=== PATIENT | female | born 1955 | race Caucasian/White ===

== ENCOUNTER 2016-06-25 06:17 | Inpatient (IN) | payer OTHER ==
[2016-06-25] MEDS ORDERED: ACETAMINOPHEN 650 MG SUPP.RECT RC ONE ×2 (06:26→11:03)
[2016-06-25] MEDS ORDERED: NORMAL SALINE 1,000 ML IV ONE ×2 (06:27→06:58)
[2016-06-25 06:46] LABS: Hematocrit 38.7 % (37.0-47.0); Hemoglobin 11.3 gm/dL (12.5-16.0); Mean Cell Volume 72.6 fl (78-100); Mean Corpuscular Hemoglobin 21.2 pg (27-31); Mean Corpuscular Hgb Conc 29.2 g/dl (32-36); Mean Platelet Volume 9.8 fl (6.0-9.5); Platelet Count 335 K/mm3 (150-450); Red Blood Count 5.33 M/mm3 (4.2-5.4); White Blood Count 18.4 K/mm3 (4.0-10.5)
[2016-06-25 06:47] LABS: Total Cells Counted 100
[2016-06-25 07:00] LABS: Albumin * 2.7 gm/dl (3.4-5.0); Anion Gap 24.4 mmol/L (6.8-13.8); BUN/Creatinine Ratio 10.2 (9.0-21.6); Ca. Corrected For Albumin 9.4 mg/dL (8.4-10.2); Calcium * 8.7 mg/dL (7.9-10.9); Carbon Dioxide 18.1 mmol/L (24-32.6); Total Protein 7.6 gm/dL (6.2-8.2)
[2016-06-25] MEDS ORDERED: ACETAMINOPHEN 650 MG SUPP.RECT ONE ×2 (07:00→11:02)
[2016-06-25 07:02] LABS: Band 23 % (0-2.0); Dohle Bodies 1+; Immature Granulocyte 9 (0-1); Lymphocyte 14 % (20-51); Macrocytosis 1+; Neutrophil 54 % (42-75); Neutrophil # 9.9 K/mm3 (1.3-6.0); Polychromasia Trace; Target Cells 1+; Toxic Granulation 2+
[2016-06-25 07:03] LABS: Platelet Estimate Increased (NORMAL)
[2016-06-25 07:08] LABS: Urine Bilirubin 6 mg/dl (NEGATIVE); Urine Blood 250 /ul (NEGATIVE); Urine Ketone Negative (NEGATIVE); Urine Nitrite Negative (NEGATIVE); Urine Protein >=300 mg/dL (NEGATIVE); Urine Urobilinogen Normal (NORMAL); Urine pH 6.5 pH (5.0-7.0)
[2016-06-25 07:09] LABS: Urine Appearance Turbid; Urine Bacteria 4+; Urine Color Dark Yellow; Urine Mucus Many - 3+
[2016-06-25 07:14] LABS: Potassium 2.5 mmol/L (3.4-4.6)
[2016-06-25] MEDS ORDERED: POTASSIUM CHLORIDE 40 MEQ in NORMAL SALINE 1,000 ML IV ONE (07:20)
[2016-06-25] MEDS ORDERED: SULFAMETHOXAZOLE/TRIMETHOPRIM 5 ML SYRINGE PO ONE (07:27)
[2016-06-25] MEDS ORDERED: LEVOFLOXACIN/D5W 500 MG/100 ML BAG IV SCH (07:30)
--- NOTE | 2016-06-25 07:33 | ERNOTE ---
Neuro HPI ER Record Time Seen by Provider: 06/25/16 06:24 Source: family, EMS Immunizations: IMMUNIZATION HX Immunizations Up to Date Yes Allergies/Adverse Reactions: Allergies Allergy/AdvReac Type Severity Reaction Status Date / Time cefixime [From Suprax] Allergy Unknown Verified 05/27/13 09:14 cefprozil [From Cefzil] Allergy Unknown Verified 05/27/13 09:14 cimetidine [From Tagamet] Allergy Unknown Verified 05/27/13 09:14 cimetidine HCl [From Tagamet] Allergy Unknown Verified 05/27/13 09:14 clarithromycin [From Biaxin] Allergy Unknown Verified 05/27/13 09:14 clindamycin HCl Allergy Unknown Verified 05/27/13 09:14 [From Cleocin] clindamycin palmitate HCl Allergy Unknown Verified 05/27/13 09:14 [From Cleocin] clindamycin phosphate Allergy Unknown Verified 05/27/13 09:14 [From Cleocin] dicyclomine HCl [From Bentyl] Allergy Unknown Verified 05/27/13 09:14 diphenhydramine HCl Allergy Unknown Verified 05/27/13 09:14 [From Benadryl] hydroxyzine HCl [From Atarax] Allergy Unknown Verified 05/27/13 09:14 ibuprofen [From Motrin] Allergy Unknown Verified 05/27/13 09:14 ketoconazole [From Nizoral] Allergy Unknown Verified 05/27/13 09:14 ketorolac tromethamine Allergy Unknown Verified 05/27/13 09:14 [From Toradol] loperamide HCl Allergy Unknown Verified 05/27/13 09:14 [From Imodium Advanced] metoclopramide HCl Allergy Unknown Verified 05/27/13 09:14 [From Reglan] nitrofurantoin Allergy Unknown Verified 05/27/13 09:14 [From Macrobid] nitrofurantoin Allergy Unknown Verified 05/27/13 09:14 macrocrystalline [From Macrobid] nortriptyline [Nortriptyline] Allergy Unknown Verified 05/27/13 09:14 prochlorperazine edisylate Allergy Unknown Verified 05/27/13 09:14 [From Compazine] prochlorperazine maleate Allergy Unknown Verified 05/27/13 09:14 [From Compazine] simethicone Allergy Unknown Verified 05/27/13 09:14 [From Imodium Advanced] atropine Allergy Verified 05/27/13 09:14 ciprofloxacin [From Cipro] Allergy Verified 05/27/13 09:14 ciprofloxacin HCl Allergy Verified 05/27/13 09:14 [From Cipro] clindamycin Allergy Verified 05/27/13 09:14 codeine [Codeine] Allergy Verified 05/27/13 09:14 ethambutol [Ethambutol] Allergy Verified 05/27/13 09:14 imipramine [Imipramine] Allergy Verified 05/27/13 09:14 isoniazid Allergy Verified 05/27/13 09:14 penicillin V [Penicillin V] Allergy Verified 05/27/13 09:14 pyrazinamide Allergy Verified 05/27/13 09:14 rifampin Allergy Verified 05/27/13 09:14 tetracycline [Tetracycline] Allergy Verified 05/27/13 09:14 Home Medications: HOME MEDICATIONS LORazepam [Ativan] 1 mg PO DAILY 06/25/16 [Last Taken Unknown] Lansoprazole [Prevacid] 30 mg PO DAILY 06/25/16 [Last Taken Unknown] Lorazepam 0.5 ml PO QID 06/25/16 [Last Taken Unknown] Meclizine HCl 25 mg PO BID PRN 06/25/16 [Last Taken Unknown] Morphine Sulfate [Morphine Sulfate Conc. Oral Solution] 0.05 ml PO Q4H 06/25/16 [Last Taken Unknown] Promethazine HCl [Phenergan] 1 - 2 ml IM Q6H 06/25/16 [Last Taken Unknown] Promethazine HCl [Phenergan] 25 mg PO QID PRN 06/25/16 [Last Taken Unknown] Propranolol HCl [Inderal] 10 mg PO QID 06/25/16 [Last Taken Unknown] - History of Present Illness Narrative: altered mental status and fever since two days ago but much worse today.Has not been eating or drinking. Review of Systems - Review of Systems Constitutional: Present: fever, chills, weakness, fatigue, malaise EYE: Present: no symptoms reported ENT: Present: no symptoms reported Respiratory: Present: no symptoms reported Cardiology: Present: no symptoms reported Gastrointestinal/Abdominal: Present: no symptoms reported Genitourinary: Present: no symptoms reported Skin: Present: no symptoms reported Neurological: Present: no symptoms reported - Patient's Past Medical History Patient History - Medical: Fibromyalgia, GERD Patient History - Cardiac/Respiratory: Arrhythmias Patient History - Cancer: Other Patient History - Surgical Procedures: Appendectomy, Colonoscopy, , Hysterectomy Patient History - Other: None - Family History Mother Family History - Medical: Family History - Cardiac/Respiratory: CHF, CVA/Stroke - Social History Living Situations: significant other Abuse History: No History of abuse Psych History: No pertinent hx Smoking Status: Never smoker Have you smoked in the past 12 months: No Alcohol Use: none Drug Use: none - Immunizations Immunizations Up to Date: Yes Physical Exam - Physical Exam General Appearance: Present: other - pt is tachypneic, febrile and altered. mouth is dry Eye Exam: Normal inspection: bilateral, PERRL: bilateral, EOMI: bilateral Ears, Nose, Throat: Present: normal ENT inspection, other - dry Neck: Present: normal inspection, nontender Respiratory: Present: lungs clear, other - pt is tachypneic Cardiovascular/Chest: Present: regular rate, rhythm, no murmur, normal peripheral pulses Gastrointestinal/Abdominal: Present: normal bowel sounds, other - pt has a urostomy and an open wound just cephalad to the umbilicus. Abd is soft yet obese , pt is moaning all the time so I can not tell if she has belly pain. No rebound noted Back Exam: Present: other - two small eschared ulcers on buttocks, one on each side Neurological Exam: Present: other - moans, disoriented, mumbling incoherently Skin Exam: Present: normal color, warm/dry ED Progress - Results and Orders Patient's Lab Results:: I have reviewed the patient's lab results. - Vital Signs Patient's Vital Signs:: I have reviewed the patient's vital signs. Vital Signs: Vital Signs 06/25/16 06/25/16 06/25/16 06:25 06:46 07:15 Temperature 39.3 C H 39.3 C H Pulse Rate 138 H 138 H 114 H Respiratory 32 H 39 H Rate Blood Pressure 123/86 O2 Sat by Pulse 99 97 Oximetry - Progress/Reassessment Chief Complaint: Altered Mental Status Plan - Plan Plan: pt has sepsis, hypokalemia , fever and will be treated at this time with Septra DS oral solution and admitted to [facility] [place] for care Departure Clinical Impression: Sepsis Qualifiers: Sepsis type: sepsis due to unspecified organism Qualified Code(s): A41.9 - Sepsis, unspecified organism - Departure Disposition: [facility] Condition: Serious Referrals: Pj Padilla MD [Primary Care Provider] -
[2016-06-25] MEDS ORDERED: POTASSIUM CHLORIDE 40 MEQ in NORMAL SALINE 1,000 ML IV SCH ×2 (07:45→10:00)
[2016-06-25] MEDS ORDERED: SULFAMETHOXAZOLE/TRIMETHOPRIM 5 ML SYRINGE ONE (07:48)
[2016-06-25] MEDS ORDERED: VANCOMYCIN HCL 1 GM in DEXTROSE 5 % IN WATER 250 ML IV ONE ×2 (08:23)
[2016-06-25] MEDS ORDERED: metroNIDAZOLE/SODIUM CHLORIDE 500 MG/100 ML BAG IV SCH (08:30)
[2016-06-25] MEDS ORDERED: SULFAMETHOXAZOLE IV SCH ×2 (09:00)
[2016-06-25] MEDS ORDERED: WATER IV SCH ×2 (09:00)
[2016-06-25] MEDS ORDERED: DEXTROSE IV SCH ×2 (09:00)
[2016-06-25] MEDS ORDERED: TRIMETHOPRIM IV SCH ×2 (09:00)
[2016-06-25] MEDS ORDERED: NOREPINEPHRINE BITARTRATE 4 MG in DEXTROSE 5 % IN WATER 496 ML IV PRN ×2 (11:15)
[2016-06-25 11:17] LABS: Hematocrit 29.1 % (37.0-47.0); Hemoglobin 8.6 gm/dL (12.5-16.0); Mean Cell Volume 72.9 fl (78-100); Mean Corpuscular Hemoglobin 21.6 pg (27-31); Mean Corpuscular Hgb Conc 29.6 g/dl (32-36); Mean Platelet Volume 9.9 fl (6.0-9.5); Platelet Count 222 K/mm3 (150-450); Red Blood Count 3.99 M/mm3 (4.2-5.4); Red Cell Distribution Width 21.2 % (11.5-14.0); White Blood Count 23.6 K/mm3 (4.0-10.5)
[2016-06-25 11:25] LABS: Prothrombin Time (Patient) 20.6 Seconds (9.4-11.4)
[2016-06-25 11:29] LABS: Total Cells Counted 100
[2016-06-25 11:36] LABS: ALT 45 U/L (19-67); AST 68 U/L (0-48); Alkaline Phosphatase * 519 U/L (50-170); Anion Gap 23.8 mmol/L (6.8-13.8); BNP * Greater than 35000 pg/mL (5-205); BUN/Creatinine Ratio 10.1 (9.0-21.6); Bilirubin Direct 3.5 mg/dL (0.0-0.3); Bilirubin, Total 3.8 mg/dL (0.0-1.1); Bilirubin,Indirect 0.3 mg/dL (0.1-0.7); Blood Urea Nitrogen 17 mg/dL (3-23); Calcium * 7.5 mg/dL (7.9-10.9); Carbon Dioxide 17.2 mmol/L (24-32.6); Chloride 103 mmol/L (97-106); Glucose * 141 mg/dL (70-110); Sodium 142 mmol/L (132-142)
[2016-06-25 11:37] LABS: Troponin I 0.227 ng/ml (0.00-0.10)
[2016-06-25 11:40] LABS: INR 1.98 INR (0.90-1.10); Partial Thrombolplastin Time 42.2 Seconds (24-32)
[2016-06-25 11:44] LABS: Band 34 % (0-2.0); Immature Granulocyte 10 (0-1); Lymphocyte 16 % (20-51); Macrocytosis 1+; Microcytosis 1+; Neutrophil 40 % (42-75); Neutrophil # 9.4 K/mm3 (1.3-6.0); Polychromasia 2+; Schistocytes 1+
[2016-06-25 11:45] LABS: Platelet Estimate Normal (NORMAL)
[2016-06-25] MEDS ORDERED: POTASSIUM CHLORIDE 100 ML IV ONE ×3 (11:50→13:53)
[2016-06-25] MEDS ORDERED: HYDROcodone/ACETAMINOPHEN 5 ML UDC PO PRN (12:06)
[2016-06-25] MEDS ORDERED: ONDANSETRON HCL/PF 2 MG/ML VIAL IV PRN (12:06)
[2016-06-25] MEDS ORDERED: ACETAMINOPHEN 325 MG TABLET PO PRN (12:06)
[2016-06-25] MEDS ORDERED: POLYVINYL ALCOHOL 150 DROP BTL EACHEYE PRN (12:06)
[2016-06-25] MEDS ORDERED: LORazepam 2 MG/ML DISP.SYRIN IV PRN ×2 (12:06→13:02)
[2016-06-25] MEDS ORDERED: ATROPINE SULFATE 150 DROP BTL SL PRN (12:06)
[2016-06-25] MEDS ORDERED: LORazepam 2 MG/ML DISP.SYRIN IV SCH (12:15)
[2016-06-25] MEDS ORDERED: LORazepam 2 MG/ML DISP.SYRIN IV ONE (13:00)
[2016-06-25] MEDS: SCOPOLAMINE HYDROBROMIDE 1.5 MG PATC TD SCH (13:11)
[2016-06-25] MEDS: MORPHINE SULFATE 4 MG/ML SYRG IV PRN ×4 (14:24→16:18)
--- NOTE | 2016-06-25 15:11 | HP ---
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 In the emergency room, patient was found to have elevated wbc at 18.4, hgb/hct at 11.3/38.7, 23 bands with 54% neutrophils, K+ 2.5, elevated cr at 1.77, lactic acid severely elevated at 12.8, elevated bilirubin at 5.0, ast/alt at 80/57 and UA showin blood, 10-25 wbc, 5-10 rbc and [address] was negative for acute process. chest xray was negative for any acute changes. PCP is Dr BALL and he started her on IV vanco, IV flagyl and IV bactrim while in the ER. Sepsis protocol was started in the ER with IV fluids and repeat lactic acid. The morning of admission, patient was found to be very lethargic and hard to arose. HR 130s, SBP 77. RR 40s. significant jaundice noticed to patient's skin. breathing shallow and rapid. orders given. Patient records indicate she is a DNR. Reached significant other, Miquel Shukla, at 1135 and he verified that pt is indeed a DNR. Miquel indicated that patient was been repeatedly sick over the last year and her health continues to decline. Comfort care discussed with him vs transfer to [facility] for ICU care. At 1145, spoke with pt's son, Juan Samuels, and update him on pt's condition - including sepsis with septic shock. Comfort care discussed with him vs transfer to [facility] for ICU care. Dr. Chua update at 1155. At 1204, patient's son, Juan Samuels, verbalized to be that the family wishes pt to be made comfort cares as they realize the severity of her illness, in addition with her significant comorbidities, and that she is unlikely to recover from this illness and thus they wish to make her as comfortable as possible. - Patient's Past Medical History Patient History - Medical: Fibromyalgia, GERD, UTI'S Patient History - Cardiac/Respiratory: Arrhythmias Patient History - Cancer: Other Patient History - Surgical Procedures: Appendectomy, Colonoscopy, , Hysterectomy Patient History - Other: None LMP (females 10-50): Menopausal - Family History Mother Family History - Medical: , History Unknown Family History - Cardiac/Respiratory: CHF, CVA/Stroke Father Family History - Medical: History Unknown Family History - Cardiac/Respiratory: History Unknown Family History - Cancer: History Unknown - Social History Living Situations: significant other Abuse History: No History of abuse Psych History: Hx of Anxiety, Hx of Depression Smoking Status: Never smoker Have you smoked in the past 12 months: No Do you dip or chew tobacco: No Patient requests Smoking Cessation Consult: No Initiate information on Smoking Cessation: No Alcohol Use: none Drug Use: none - Immunizations Immunizations Up to Date: Yes Review Of Systems (GEN) - Review of Systems Additional Comments: unable to obtain ROS due to pt condition. Immunizations: IMMUNIZATION HX Immunizations Up to Date Yes Allergies/Adverse Reactions: Allergies Allergy/AdvReac Type Severity Reaction Status Date / Time cefixime [From Suprax] Allergy Unknown Verified 05/27/13 09:14 cefprozil [From Cefzil] Allergy Unknown Verified 05/27/13 09:14 cimetidine [From Tagamet] Allergy Unknown Verified 05/27/13 09:14 cimetidine HCl [From Tagamet] Allergy Unknown Verified 05/27/13 09:14 clarithromycin [From Biaxin] Allergy Unknown Verified 05/27/13 09:14 clindamycin HCl Allergy Unknown Verified 05/27/13 09:14 [From Cleocin] clindamycin palmitate HCl Allergy Unknown Verified 05/27/13 09:14 [From Cleocin] clindamycin phosphate Allergy Unknown Verified 05/27/13 09:14 [From Cleocin] dicyclomine HCl [From Bentyl] Allergy Unknown Verified 05/27/13 09:14 diphenhydramine HCl Allergy Unknown Verified 05/27/13 09:14 [From Benadryl] hydroxyzine HCl [From Atarax] Allergy Unknown Verified 05/27/13 09:14 ibuprofen [From Motrin] Allergy Unknown Verified 05/27/13 09:14 ketoconazole [From Nizoral] Allergy Unknown Verified 05/27/13 09:14 ketorolac tromethamine Allergy Unknown Verified 05/27/13 09:14 [From Toradol] loperamide HCl Allergy Unknown Verified 05/27/13 09:14 [From Imodium Advanced] metoclopramide HCl Allergy Unknown Verified 05/27/13 09:14 [From Reglan] nitrofurantoin Allergy Unknown Verified 05/27/13 09:14 [From Macrobid] nitrofurantoin Allergy Unknown Verified 05/27/13 09:14 macrocrystalline [From Macrobid] nortriptyline [Nortriptyline] Allergy Unknown Verified 05/27/13 09:14 prochlorperazine edisylate Allergy Unknown Verified 05/27/13 09:14 [From Compazine] prochlorperazine maleate Allergy Unknown Verified 05/27/13 09:14 [From Compazine] simethicone Allergy Unknown Verified 05/27/13 09:14 [From Imodium Advanced] atropine Allergy Verified 05/27/13 09:14 ciprofloxacin [From Cipro] Allergy Verified 05/27/13 09:14 ciprofloxacin HCl Allergy Verified 05/27/13 09:14 [From Cipro] clindamycin Allergy Verified 05/27/13 09:14 codeine [Codeine] Allergy Verified 05/27/13 09:14 ethambutol [Ethambutol] Allergy Verified 05/27/13 09:14 imipramine [Imipramine] Allergy Verified 05/27/13 09:14 isoniazid Allergy Verified 05/27/13 09:14 penicillin V [Penicillin V] Allergy Verified 05/27/13 09:14 pyrazinamide Allergy Verified 05/27/13 09:14 rifampin Allergy Verified 05/27/13 09:14 tetracycline [Tetracycline] Allergy Verified 05/27/13 09:14 Home Medications: HOME MEDICATIONS LORazepam [Ativan] 1 mg PO DAILY 06/25/16 [Last Taken Unknown] Lansoprazole [Prevacid] 30 mg PO DAILY 06/25/16 [Last Taken Unknown] Lorazepam 0.5 ml PO QID 06/25/16 [Last Taken Unknown] Meclizine HCl 25 mg PO BID PRN 06/25/16 [Last Taken Unknown] Morphine Sulfate [Morphine Sulfate Conc. Oral Solution] 0.05 ml PO Q4H PRN 06/25 [Last Taken Unknown] Promethazine HCl [Phenergan] 1 - 2 ml IM Q6H 06/25/16 [Last Taken Unknown] Promethazine HCl [Phenergan] 25 mg PO Q4H PRN 06/25/16 [Last Taken Unknown] Propranolol HCl [Inderal] 10 mg PO QID 06/25/16 [Last Taken Unknown] Exam - Exam Vital Signs: Vital Signs - Last Taken Temp 38.3 C H 06/25/16 11:39 Pulse 112 H 06/25/16 11:39 Resp 41 H 06/25/16 11:39 BP 77/40 06/25/16 11:39 Pulse Ox 96 06/25/16 13:29 Constitutional: Present: Severe distress, Lethargic, Obtunded, Other - febrile, , Looks Older than stated age Eye Exam: bilateral eye: normal inspection Neck: Present: supple Breasts: Present: Exam deferred Respiratory: Present: respiratory distress, rhonchi, other - tachypneic Cardiovascular/Chest: Present: tachycardia, systolic murmur Peripheral Pulses: carotid (R): 1+, carotid (L): 1+, radial (R): 1+, radial (L) : 1+ Abdomen: Present: soft, obese, tender - diffuse abdominal tenderness that increases over the RUQ /Rectal: Present: Exam deferred Extremity: Present: swelling - left upper left with lateral wound noted Skin Exam: Present: jaundice, other - multiple wounds on abdomen and buttocks Neurologic: Present: other - moaning, disoriented Diagnostic Studies: Abnormal Lab Results 06/25/16 06/25/16 06/25/16 Range/Units 09:35 11:10 11:10 WBC 23.6 H D (4.0-10.5) K/mm3 RBC 3.99 L (4.2-5.4) M/mm3 Hgb 8.6 L (12.5-16.0) gm/dL Hct 29.1 L (37.0-47.0) % MCV 72.9 L (78-100) fl MCH 21.6 L (27-31) pg MCHC 29.6 L (32-36) g/dl RDW 21.2 H (11.5-14.0) % MPV 9.9 H (6.0-9.5) fl Neutrophils % (Manual) 40 L (42-75) % Band Neuts % (Manual) 34 H (0-2.0) % Lymphocytes % (Manual) 16 L (20-51) % Immature Granulocytes 10 H (0-1) Neutrophils # (Manual) 9.4 H (1.3-6.0) K/mm3 Lymphocytes # (Manual) 3.8 H (1.5-3.5) k/mm3 PT 20.6 H (9.4-11.4) Seconds INR (Anticoag Therapy) 1.98 H (0.90-1.10) INR PTT (Barber) 42.2 H (24-32) Seconds pCO2 (32.0-45.0) mmHg HCO3 (21.0-28.0) mmol/L Total CO2 (19.0-24.0) mmol/L Base Excess (-2.0-3.0) mmol/L ABG pH (7.35-7.45) Plasma Sodium (130-142) mmol/L Potassium (3.4-4.6) mmol/L Carbon Dioxide (24-32.6) mmol/L Anion Gap (6.8-13.8) mmol/L Creatinine (0.4-1.4) mg/dL Est GFR (Non-Af Amer) (60-130) mL/min Random Glucose (70-110) mg/dL Lactic Acid, Venous 11.1 H* (0.4-2.0) mmol/L Calcium (7.9-10.9) mg/dL Total Bilirubin (0.0-1.1) mg/dL Direct Bilirubin (0.0-0.3) mg/dL AST (0-48) U/L Alkaline Phosphatase (50-170) U/L Troponin I (0.00-0.10) ng/ml B-Natriuretic Peptide (5-205) pg/mL Total Protein (6.2-8.2) gm/dL Albumin (3.4-5.0) gm/dl 06/25/16 06/25/16 Range/Units 11:10 11:12 WBC (4.0-10.5) K/mm3 RBC (4.2-5.4) M/mm3 Hgb (12.5-16.0) gm/dL Hct (37.0-47.0) % MCV (78-100) fl MCH (27-31) pg MCHC (32-36) g/dl RDW (11.5-14.0) % MPV (6.0-9.5) fl Neutrophils % (Manual) (42-75) % Band Neuts % (Manual) (0-2.0) % Lymphocytes % (Manual) (20-51) % Immature Granulocytes (0-1) Neutrophils # (Manual) (1.3-6.0) K/mm3 Lymphocytes # (Manual) (1.5-3.5) k/mm3 PT (9.4-11.4) Seconds INR (Anticoag Therapy) (0.90-1.10) INR PTT (Barber) (24-32) Seconds pCO2 17.7 L* (32.0-45.0) mmHg HCO3 13.5 L (21.0-28.0) mmol/L Total CO2 14.0 L (19.0-24.0) mmol/L Base Excess -8.1 L (-2.0-3.0) mmol/L ABG pH 7.50 H (7.35-7.45) Plasma Sodium 143 H (130-142) mmol/L Potassium 2.0 L* (3.4-4.6) mmol/L Carbon Dioxide 17.2 L (24-32.6) mmol/L Anion Gap 23.8 H (6.8-13.8) mmol/L Creatinine 1.68 H (0.4-1.4) mg/dL Est GFR (Non-Af Amer) 33 L (60-130) mL/min Random Glucose 141 H D (70-110) mg/dL Lactic Acid, Venous (0.4-2.0) mmol/L Calcium 7.5 L (7.9-10.9) mg/dL Total Bilirubin 3.8 H (0.0-1.1) mg/dL Direct Bilirubin 3.5 H (0.0-0.3) mg/dL AST 68 H (0-48) U/L Alkaline Phosphatase 519 H (50-170) U/L Troponin I 0.227 H* (0.00-0.10) ng/ml B-Natriuretic Peptide [place] [address]228 H (5-205) pg/mL Total Protein 6.0 L (6.2-8.2) gm/dL Albumin 2.0 L (3.4-5.0) gm/dl Laboratory Results WBC 23.6 K/mm3 (4.0-10.5) H D 06/25/16 11:10 RBC 3.99 M/mm3 (4.2-5.4) L 06/25/16 11:10 Hgb 8.6 gm/dL (12.5-16.0) L 06/25/16 11:10 Hct 29.1 % (37.0-47.0) L 06/25/16 11:10 MCV 72.9 fl (78-100) L 06/25/16 11:10 MCH 21.6 pg (27-31) L 06/25/16 11:10 MCHC 29.6 g/dl (32-36) L 06/25/16 11:10 RDW 21.2 % (11.5-14.0) H 06/25/16 11:10 Plt Count 222 K/mm3 (150-450) 06/25/16 11:10 MPV 9.9 fl (6.0-9.5) H 06/25/16 11:10 Immature Gran % (Auto) [employer] 06/25/16 11:10 Immature Gran # (Auto) [employer] 06/25/16 11:10 Neutrophils % [employer] 06/25/16 11:10 Neutrophils % (Manual) 40 % (42-75) L 06/25/16 11:10 Band Neuts % (Manual) 34 % (0-2.0) H 06/25/16 11:10 Lymphocytes % [employer] 06/25/16 11:10 Lymphocytes % (Manual) 16 % (20-51) L 06/25/16 11:10 Monocytes % [employer] 06/25/16 11:10 Eosinophils % [employer] 06/25/16 11:10 Basophils % [employer] 06/25/16 11:10 Nucleated RBC % [employer] 06/25/16 11:10 Immature Granulocytes 10 (0-1) H 06/25/16 11:10 Neutrophils # [employer] 06/25/16 11:10 Neutrophils # (Manual) 9.4 K/mm3 (1.3-6.0) H 06/25/16 11:10 Lymphocytes # [employer] 06/25/16 11:10 Lymphocytes # (Manual) 3.8 k/mm3 (1.5-3.5) H 06/25/16 11:10 Monocytes # [employer] 06/25/16 11:10 Eosinophils # [employer] 03/12/17 11:10 Absolute Basophils [employer] 06/25/16 11:10 Toxic Granulation 2+ 06/25/16 06:40 Toxic Vacuolation 2+ 06/25/16 06:40 Dohle Bodies 1+ 06/25/16 06:40 Platelet Estimate Normal (NORMAL) 06/25/16 11:10 Polychromasia 2+ 06/25/16 11:10 Microcytosis 1+ 06/25/16 11:10 Macrocytosis 1+ 06/25/16 11:10 Target Cells 1+ 06/25/16 06:40 Elliptocytes 1+ 06/25/16 11:10 Schistocytes 1+ 06/25/16 11:10 PT 20.6 Seconds (9.4-11.4) H 06/25/16 11:10 INR (Anticoag Therapy) 1.98 INR (0.90-1.10) H 06/25/16 11:10 PTT (Nallely) 42.2 Seconds (24-32) H 06/25/16 11:10 pCO2 17.7 mmHg (32.0-45.0) L* 06/25/16 11:12 pO2 83.0 mmHg (83.0-108.0) 06/25/16 11:12 HCO3 13.5 mmol/L (21.0-28.0) L 06/25/16 11:12 Total CO2 14.0 mmol/L (19.0-24.0) L 06/25/16 11:12 Base Excess -8.1 mmol/L (-2.0-3.0) L 06/25/16 11:12 ABG pH 7.50 (7.35-7.45) H 06/25/16 11:12 ABG O2 Sat (Measured) 97.2 % (94.0-98.0) 06/25/16 11:12 Sodium 142 mmol/L (132-142) 06/25/16 11:10 Plasma Sodium 143 mmol/L (130-142) H 06/25/16 11:10 Potassium 2.0 mmol/L (3.4-4.6) L* 06/25/16 11:10 Chloride 103 mmol/L (97-106) 06/25/16 11:10 Carbon Dioxide 17.2 mmol/L (24-32.6) L 06/25/16 11:10 Anion Gap 23.8 mmol/L (6.8-13.8) H 06/25/16 11:10 BUN 17 mg/dL (3-23) 06/25/16 11:10 Creatinine 1.68 mg/dL (0.4-1.4) H 06/25/16 11:10 Est GFR (Non-Af Amer) 33 mL/min (60-130) L 06/25/16 11:10 BUN/Creatinine Ratio 10.1 (9.0-21.6) 06/25/16 11:10 Random Glucose 141 mg/dL (70-110) H D 06/25/16 11:10 Lactic Acid, Venous 11.1 mmol/L (0.4-2.0) H* 06/25/16 09:35 Calcium 7.5 mg/dL (7.9-10.9) L 06/25/16 11:10 Calcium Adj for Albumin 9.4 mg/dL (8.4-10.2) 06/25/16 06:40 Total Bilirubin 3.8 mg/dL (0.0-1.1) H 06/25/16 11:10 Direct Bilirubin 3.5 mg/dL (0.0-0.3) H 06/25/16 11:10 Indirect Bilirubin 0.3 mg/dL (0.1-0.7) 06/25/16 11:10 AST 68 U/L (0-48) H 06/25/16 11:10 ALT 45 U/L (19-67) 06/25/16 11:10 Alkaline Phosphatase 519 U/L (50-170) H 06/25/16 11:10 Ammonia 23.0 mcmol/L (11-35) 06/25/16 11:10 Troponin I 0.227 ng/ml (0.00-0.10) H* 06/25/16 11:10 B-Natriuretic Peptide Greater than 81828 pg/mL (5-205) H 06/25/16 11:10 Total Protein 6.0 gm/dL (6.2-8.2) L 06/25/16 11:10 Albumin 2.0 gm/dl (3.4-5.0) L 06/25/16 11:10 Urine Color Dark yellow 06/25/16 07:02 Urine Appearance Turbid 06/25/16 07:02 Urine pH 6.5 pH (5.0-7.0) 06/25/16 07:02 Ur Specific [place] 1.020 SP.GR. (1.005-1.010) 06/25/16 07:02 Urine Protein >=300 mg/dL (NEGATIVE) H 06/25/16 07:02 Urine Glucose (UA) Negative mg/dL (NEGATIVE) 06/25/16 07:02 Urine Ketones Negative mg/dL (NEGATIVE) 06/25/16 07:02 Urine Blood 250 /ul (NEGATIVE) H 06/25/16 07:02 Urine Nitrate Negative (NEGATIVE) 06/25/16 07:02 Urine Bilirubin 6 mg/dl (NEGATIVE) 06/25/16 07:02 Prot Sulfosalicylic Acd 4+ mg/dL (0) H 06/25/16 07:02 Urine Urobilinogen Normal EU/dl (NORMAL) 06/25/16 07:02 Ur Leukocyte Esterase 25 /ul (NEGATIVE) H 06/25/16 07:02 Urine RBC 5-10 /hpf (0-5) H 06/25/16 07:02 Urine WBC 10-25 /hpf (0-5) H 06/25/16 07:02 Ur Epithelial Cells 5-10 /hpf (0-5) H 06/25/16 07:02 Urine Bacteria 4+ (NONE) H 06/25/16 07:02 Urine Mucus Many - 3+ (NONE) H 06/25/16 07:02 Urine Culture Comments Culture to follow 06/25/16 07:02 Influenza Type A Ag Negative (NEGATIVE) 06/25/16 09:30 Influenza Type B Ag Negative (NEGATIVE) 06/25/16 09:30 Mycoplasma pneumon IgM Non reactive (NonReactive) 06/25/16 11:10 Group A Strep Rapid Negative (NEGATIVE) 06/25/16 09:30 Assessment/Plan - Narrative Narrative: Bridgette is a 61 year old female who was admitted to the hospital with severe sepsis with septic shock likely multifactorial including UTI and ascending cholangitis. Patient has a significant past medical history, including multiple chronic illness, that have contributed to her illness and to the decline of her health over the last year. I have offered to transfer the patient to ICU level care at [facility] for more aggressive treatment and the son and pt's significant other have declined this course of action. Son has indicated to me that the family wishes are for comfort care. Orders have been given for comfort care protocol. - Assessment/Plan (1) Severe sepsis with septic shock Problem: Acute (2) Hypokalemia Problem: Acute (3) Ascending cholangitis Problem: Acute (4) UTI (urinary tract infection) Problem: Acute Qualifiers: Indwelling urinary catheter type: unspecified Encounter type: initial encounter (5) Comfort measures only status Problem: Acute (6) Altered mental status Problem: Acute Qualifiers: Altered mental status type: delirium Qualified Code(s): R41.0 - Disorientation, unspecified (7) Cellulitis Problem: Acute
[2016-06-25] MEDS ORDERED: HYDROmorphone HCL 1 MG/ML DISP.SYRIN IV ONE ×2 (16:56→17:00)
[2016-06-25] MEDS: HYDROmorphone HCL 1 MG/ML DISP.SYRIN IV PRN (19:15)
[2016-06-25] MEDS: LORazepam 2 MG/ML DISP.SYRIN IV PRN (19:58)
[2016-06-25] MEDS: HYDROPHILIC OINTMENT 454 APPL JAR TP SCH (21:57)
[2016-06-26] MEDS: LORazepam 2 MG/ML DISP.SYRIN IV PRN ×4 (00:55→15:15)
[2016-06-26] MEDS: HYDROmorphone HCL 1 MG/ML DISP.SYRIN IV PRN ×3 (01:02→07:21)
[2016-06-26] MEDS ORDERED: ACETAMINOPHEN 325 MG TABLET PO PRN (07:49)
[2016-06-26] MEDS ORDERED: PROMETHAZINE HCL 25 MG in DEXTROSE 5 % IN WATER 50 ML IV PRN ×2 (07:52)
[2016-06-26] MEDS ORDERED: HYDROmorphone HCL 1 MG/ML DISP.SYRIN IV PRN (08:22)
[2016-06-26] MEDS: fentaNYL 50 MCG PATCH.TD72 TD SCH (08:36)
[2016-06-26] MEDS: LORazepam 2 MG/ML DISP.SYRIN IV SCH ×3 (08:38→19:04)
[2016-06-26] MEDS: HYDROPHILIC OINTMENT 454 APPL JAR TP SCH ×2 (08:45→21:28)
[2016-06-26] MEDS ORDERED: VANCOMYCIN HCL 0.75 GM in DEXTROSE 5 % IN WATER 250 ML IV SCH ×2 (09:00)
[2016-06-26] MEDS: HYDROmorphone HCL 2 MG/ML VIAL IV PRN ×4 (10:02→23:21)
[2016-06-26] MEDS: PROPRANOLOL HCL 10 MG TABLET PO SCH ×3 (13:07→21:28)
--- NOTE | 2016-06-26 16:49 | PN ---
Subjective - Date and Time Seen Date: 06/26/16 Time: 07:20 Subjective Narrative: Confused, but recognizes me by name. In pain. Nausea. Her current home meds are not accurate at the time of my visit this morning. Current plan is comfort care, patient is terminal with sepsis, most likely from urine. Objective - Review of Systems Generalized/Overall Review: Reports: No Symptoms Reported - unable to provide Misc: All systems neg except as marked - wanted her n.c. oxygen off this morning , because the tube was uncomfortable. - Vitals Vitals: Last Vital Signs Temp 37.7 C H 06/25/16 21:11 Pulse 117 H 06/25/16 21:11 Resp 18 06/25/16 21:11 BP 80/44 06/25/16 21:11 Pulse Ox 98 06/26/16 08:27 - Exam Constitutional: Present: Well developed, Moderate distress, Lethargic ENT Exam: Present: normal ENT inspection Neck: Present: normal inspection Respiratory: Present: lungs clear, normal breath sounds Cardiovascular/Chest: Present: regular rate, rhythm, no murmur Abdomen: Present: Normal bowel sounds, tender, guarding, other - urostomy, ventral fistulae openings and hernias, multiple., distended Extremity: Present: pedal edema Skin Exam: Present: no cyanosis, pallor Neurologic: Present: other Appearance: Present: appropriate appearance Assessment/Plan Plan Narrative: Adjust meds now. Obtain accurate home meds. Adjust meds further as needed. Comfort care. - Problems/Diagnosis (1) Comfort measures only status Problem: Acute (2) Severe sepsis with septic shock Problem: Acute (3) UTI (urinary tract infection) Problem: Acute Qualifiers: Indwelling urinary catheter type: unspecified Encounter type: initial encounter
[2016-06-27] MEDS: LORazepam 2 MG/ML DISP.SYRIN IV SCH ×4 (02:42→22:19)
[2016-06-27] MEDS: LORazepam 2 MG/ML DISP.SYRIN IV PRN (04:07)
[2016-06-27] MEDS: HYDROmorphone HCL 2 MG/ML VIAL IV PRN ×6 (07:21→22:11)
[2016-06-27] MEDS: PROPRANOLOL HCL 10 MG TABLET PO SCH ×4 (08:59→22:40)
[2016-06-27] MEDS: HYDROPHILIC OINTMENT 454 APPL JAR TP SCH ×2 (09:23→22:18)
--- NOTE | 2016-06-27 13:13 | PN ---
Subjective - Date and Time Seen Date: 06/27/16 Time: 09:00 Subjective Narrative: Patient seen and examined at bedside this AM. Patient awake, alert and able to have a conversation this AM. Objective - Review of Systems Generalized/Overall Review: Reports: Weakness, Fatigue EENTM: Reports: No Symptoms Reported Respiratory: Reports: No Symptoms Reported Cardiac: Reports: No Symptoms Reported Abdominal: Reports: Nausea, Abdominal Pain Genitourinary Symptoms: Reports: No Symptoms Reported Musculoskeletal Complaints: Reports: Other - Pain all over Endocrine: Reports: No Symptoms Reported - Vitals Vitals: Last Vital Signs Temp 37.1 C 06/27/16 08:28 Pulse 75 06/27/16 08:28 Resp 24 H 06/27/16 08:28 BP 127/73 06/27/16 08:28 Pulse Ox 94 06/27/16 08:28 - Exam Constitutional: Present: Alert, Cooperative Neurologic: Present: alert, normal mood/affect Eye contact: Present: cooperative, good eye contact Assessment/Plan Plan Narrative: Continue with comfort cares. graphic coordinator working on arrangements for the patient to go home with hospice. Hopefully patient can discharge home with hospice within then next day or so. Regular diet as tolerated. Activity as tolerated. - Problems/Diagnosis (1) Comfort measures only status Problem: Acute
[2016-06-28] MEDS: HYDROmorphone HCL 2 MG/ML VIAL IV PRN ×4 (00:33→09:53)
[2016-06-28] MEDS: LORazepam 2 MG/ML DISP.SYRIN IV SCH ×4 (05:25→22:18)
[2016-06-28] MEDS: PROPRANOLOL HCL 10 MG TABLET PO SCH ×4 (08:36→21:46)
[2016-06-28] MEDS: HYDROPHILIC OINTMENT 454 APPL JAR TP SCH ×2 (08:36→21:47)
[2016-06-28] MEDS ORDERED: HYDROmorphone HCL IN 0.9% NACL 50 ML CARTRIDGE IV PRN (09:57)
[2016-06-28] MEDS ORDERED: diphenhydrAMINE HCL 50 MG/ML VIAL IV PRN (09:57)
[2016-06-28] MEDS ORDERED: NALOXONE HCL 1 MG/1 ML SYRG IV PRN (09:57)
[2016-06-28] MEDS ORDERED: NORMAL SALINE 1,000 ML IV PRN (10:07)
--- NOTE | 2016-06-28 10:08 | PN ---
Subjective - Date and Time Seen Date: 06/28/16 Time: 10:02 Subjective Narrative: Ms. Samuels reports uncontrolled pain this morning. She is not nauseated. She does not feel that the IV hydromorphone is lasting long enough. She has a poor appetite. She reports pain is "everywhere." She has continuous drainage from chronically draining abdominal wall fistula. Objective - Review of Systems Generalized/Overall Review: Reports: Fatigue Abdominal: Reports: Nausea, Abdominal Pain, Other - Constant yellow/green drainage from abdominal fistula. Skin around site looks irritated. Genitourinary Symptoms: Reports: No Symptoms Reported Neurological: Reports: Anxiety, Depressed - Vitals Vitals: Last Vital Signs Temp 37.1 C 06/27/16 08:28 Pulse 66 06/27/16 22:40 Resp 24 H 06/27/16 08:28 BP 86/52 06/27/16 22:40 Pulse Ox 94 06/27/16 08:28 - Abnormal Lab Findings Abnormal Lab Findings: No labs since 06/25/2016 - Exam Constitutional: Present: Moderate distress - Related to poorly controlled pain. Respiratory: Present: lungs clear Abdomen: Present: tender, hypoactive - Abdominal fistula. Urostomy with beefy red stoma. /Rectal: Present: Exam deferred Extremity: Present: normal range of motion, non-tender, normal inspection, no pedal edema, no calf tenderness Skin Exam: Present: normal color, warm/dry Lymphatic: Present: no adenopathy Neurologic: Present: sales operations lead II-XII nml as tested Appearance: Present: appropriate appearance Eye contact: Present: avoids eye contact Thoughts: Present: normal thought pattern Assessment/Plan - Problems/Diagnosis (1) Comfort measures only status Problem: Acute Narrative: Ms. Platts pain is currently very poorly controlled despite frequent dosing of IV hydromorphone and Fentanyl patch. 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 She has adequate stool output. Consider increasing lorazepam to help with current symptoms. We are seeking a referral to [facility] as her pain is not adequately controlled with IV medication. (2) Severe sepsis with septic shock Problem: Acute Narrative: Ms. Samuels and her family do not currently wish for treatment of this current condition. We will try to more aggressively manage her pain and anxiety.
[2016-06-28] MEDS: SCOPOLAMINE HYDROBROMIDE 1.5 MG PATC TD SCH (13:24)
[2016-06-28 21:46] VITALS: BP 86/58
[2016-06-28] MEDS: DOCUSATE SODIUM 100 MG CAPSULE PO SCH (21:47)
[2016-06-29] MEDS: LORazepam 2 MG/ML DISP.SYRIN IV SCH (03:12)
[2016-06-29] MEDS: LORazepam 2 MG/ML DISP.SYRIN IV PRN (07:46)
[2016-06-29] MEDS ORDERED: POLYETHYLENE GLYCOL 3350 119 GM BTL PO SCH (09:00)
--- NOTE | 2016-06-29 09:00 | DS ---
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 In the emergency room, patient was found to have elevated wbc at 18.4, hgb/hct at 11.3/38.7, 23 bands with 54% neutrophils, K+ 2.5, elevated cr at 1.77, lactic acid severely elevated at 12.8, elevated bilirubin at 5.0, ast/alt at 80/57 and UA showin blood, 10-25 wbc, 5-10 rbc and [address] was negative for acute process. chest xray was negative for any acute changes. PCP is Dr BALL and he started her on IV vanco, IV flagyl and IV bactrim while in the ER. Sepsis protocol was started in the ER with IV fluids and repeat lactic acid. The morning of admission, patient was found to be very lethargic and hard to arose. HR 130s, SBP 77. RR 40s. significant jaundice noticed to patient's skin. breathing shallow and rapid. orders given. Patient records indicate she is a DNR. Reached significant other, Miquel Shukla, at 1135 and he verified that pt is indeed a DNR. Miquel indicated that patient was been repeatedly sick over the last year and her health continues to decline. Comfort care discussed with him vs transfer to [facility] for ICU care. At 1145, spoke with pt's son, Juan Samuels, and update him on pt's condition - including sepsis with septic shock. Comfort care discussed with him vs transfer to [facility] for ICU care. Dr. Chua update at 1155. At 1204, patient's son, Juan Samuels, verbalized to be that the family wishes pt to be made comfort cares as they realize the severity of her illness, in addition with her significant comorbidities, and that she is unlikely to recover from this illness and thus they wish to make her as comfortable as possible. Patient discharged home with home hospice through [facility]. Patient already has comfort medications at home. Patient will have a gaming surveillance observer at home during the day while her significant other is at work. Procedures Performed: none Discharge Disposition: Hospice - Home with [facility] Disposition: Home self-care Condition: Poor Discharge Activity: Activity as tolerated Discharge Diet: General/regular food Discharge Level of Care:: Hospice - Home Referrals: Pj Padilla MD [Primary Care Provider] - Additional Patient Instructions (free text): Home with [facility]. Please fax orders and call report upon discharge.
[2016-06-29] MEDS: fentaNYL 50 MCG PATCH.TD72 TD SCH (10:35)
[2016-06-29] MEDS: HYDROPHILIC OINTMENT 454 APPL JAR TP SCH (10:36)
[2016-06-29] MEDS: DOCUSATE SODIUM 100 MG CAPSULE PO SCH (10:36)
== END 2016-06-29 11:15 | disposition hospice, home (50) | DRG 871 ==
LOC: ER 06:17 → MS 07:40
PROVIDERS: ADMIT Internal Medicine; ATTEND Allergy & Immunology
PROC: 4A033R1 Measurement of Arterial Saturation, Peripheral, Percutaneous Approach (ICD-10-PCS; principal; 2016-06-25)
DX: R65.21 Severe sepsis with septic shock (principal); N39.0 Urinary tract infection, site not specified; K63.2 Fistula of intestine; R41.0 Disorientation, unspecified; E87.6 Hypokalemia; Z93.6 Other artificial openings of urinary tract status

== ENCOUNTER 2018-08-19 05:11 | Observation (INO) ==
[2018-08-19 06:03] LABS: Hematocrit 27.2 % (37.0-47.0); Mean Cell Volume 69.2 fl (78-100); Mean Corpuscular Hemoglobin 19.1 pg (27-31); Mean Corpuscular Hgb Conc 27.6 g/dl (32-36); Neutrophil % 67.4 % (42-75.0); Platelet Count 282 K/mm3 (150-450); Red Blood Count 3.93 M/mm3 (4.2-5.4); Red Cell Distribution Width 19.2 % (11.5-14.0); White Blood Count 11.9 K/mm3 (4.0-10.5)
[2018-08-19] MEDS ORDERED: oxyCODONE HCL/ACETAMINOPHEN 1 TAB TABLET PO ONE (06:04)
--- NOTE | 2018-08-19 06:05 | ERNOTE ---
Dizziness ER Record Date of Service: 08/19/18 Presenting Symptoms: other - Buzzing in her ear Time Seen by Provider: 08/19/18 05:27 Source: patient Exam Limitations: no limitations Immunizations: IMMUNIZATION HX Immunizations Up to Date Yes History of Influenza Vaccine No Hx Pneumococcal Vaccination Yes Allergies/Adverse Reactions: Allergies Allergy/AdvReac Type Severity Reaction Status Date / Time cefixime [From Suprax] Allergy Unknown Verified 08/19/18 06:00 cefprozil [From Cefzil] Allergy Unknown Verified 08/19/18 06:00 cimetidine [From Tagamet] Allergy Unknown Verified 08/19/18 06:00 cimetidine HCl [From Tagamet] Allergy Unknown Verified 08/19/18 06:00 clarithromycin [From Biaxin] Allergy Unknown Verified 08/19/18 06:00 clindamycin HCl Allergy Unknown Verified 08/19/18 06:00 [From Cleocin] clindamycin palmitate HCl Allergy Unknown Verified 08/19/18 06:00 [From Cleocin] clindamycin phosphate Allergy Unknown Verified 08/19/18 06:00 [From Cleocin] dicyclomine HCl [From Bentyl] Allergy Unknown Verified 08/19/18 06:00 diphenhydramine HCl Allergy Unknown Verified 08/19/18 06:00 [From Benadryl] hydroxyzine HCl [From Atarax] Allergy Unknown Verified 08/19/18 06:00 ibuprofen [From Motrin] Allergy Unknown Verified 08/19/18 06:00 ketoconazole [From Nizoral] Allergy Unknown Verified 08/19/18 06:00 ketorolac tromethamine Allergy Unknown Verified 08/19/18 06:00 [From Toradol] loperamide HCl Allergy Unknown Verified 08/19/18 06:00 [From Imodium Advanced] metoclopramide HCl Allergy Unknown Verified 08/19/18 06:00 [From Reglan] nitrofurantoin Allergy Unknown Verified 08/19/18 06:00 [From Macrobid] nitrofurantoin Allergy Unknown Verified 08/19/18 06:00 macrocrystalline [From Macrobid] nortriptyline [Nortriptyline] Allergy Unknown Verified 08/19/18 06:00 prochlorperazine edisylate Allergy Unknown Verified 08/19/18 06:00 [From Compazine] prochlorperazine maleate Allergy Unknown Verified 08/19/18 06:00 [From Compazine] simethicone Allergy Unknown Verified 08/19/18 06:00 [From Imodium Advanced] atropine Allergy Verified 08/19/18 06:00 ciprofloxacin [From Cipro] Allergy Verified 08/19/18 06:00 ciprofloxacin HCl Allergy Verified 08/19/18 06:00 [From Cipro] clindamycin Allergy Verified 08/19/18 06:00 codeine [Codeine] Allergy Verified 08/19/18 06:00 ethambutol [Ethambutol] Allergy Verified 08/19/18 06:00 imipramine [Imipramine] Allergy Verified 08/19/18 06:00 isoniazid Allergy Verified 08/19/18 06:00 penicillin V [Penicillin V] Allergy Verified 08/19/18 06:00 pyrazinamide Allergy Verified 08/19/18 06:00 rifampin Allergy Verified 08/19/18 06:00 tetracycline [Tetracycline] Allergy Verified 08/19/18 06:00 Home Medications: HOME MEDICATIONS LORazepam 1 tab PO TID 08/19/18 [Last Taken Unknown] Meclizine HCl 1 tab PO BID 08/19/18 [Last Taken Unknown] Morphine Sulfate 1 tab PO BID 08/19/18 [Last Taken Unknown] Promethazine HCl 1 tab PO BID 08/19/18 [Last Taken Unknown] Propranolol HCl 1 tab PO BID 08/19/18 [Last Taken Unknown] - History of Present Illness Narrative: 63-year-old female comes to the ED complaining of a swishing sound in her right ear for the past 7 weeks she describes it as being green annoying it does seem to get better with background noise or white noise but she says it is like a pounding sensation she also has multiple other complaints somatic complaints that are chronic in nature and are being taken care of by other physicians highly large When asked why she has not seen her ENT for the pain since she is wanted to try to do it on her own she is the only thing that works is Roxicet and lorazepam but she ran out of them Date (Duration): 08/19/18 Time (Timing): 05:51 Timing and Duration: constant - ` Severity: max: moderate Severity: currently: moderate Associated Symptoms: Present: ringing/roaring in ear Sense of movement: Present: none Fainted/near fainted while:: Present: sitting Decreased ability to stand/walk:: Present: weak Usually:: Present: walks only w/ assistance Modifying Factors - (Improves): Reports: nothing Modifying Factors - (Worsens): Reports: nothing Prior Treament: Reports: recently seen Review of Systems - Review of Systems Constitutional: Present: weakness, fatigue EYE: Present: no symptoms reported ENT: Present: ear pain, ear discharge. Absent: sore throat, throat swelling Respiratory: Present: no symptoms reported Cardiology: Present: no symptoms reported Gastrointestinal/Abdominal: Present: no symptoms reported - Patient has a large ventral appendage secondary to surgery Genitourinary: Present: no symptoms reported Musculoskeletal: Present: back pain Skin: Present: dryness, other - Multiple ecchymosis Neurological: Present: emotional problems Psych: Present: anxiety All Other Systems: All systems neg except as marked Medical History (Updated 08/19/18 @ 07:46 by Celestino Saenz MD) Hx of hypokalemia Hx of sepsis Hx: UTI (urinary tract infection) hx of altered mental status Surgical History: Surgical History (Updated 08/19/18 @ 05:59 by Rafaela Granado RN) Surgical history unknown Family History: Family History (Updated 08/19/18 @ 06:00 by Rafaela Granado RN) Other Family history unknown Social History: Preferred Language Lao Smoking Status Never smoker Abuse History No History of abuse Psych History Hx of Anxiety,Hx of Depression Alcohol Use none Drug Use none No Social History Section defined Physical Exam - Physical Exam General Appearance: Present: alert, mild distress, obese Head Exam: Present: normal inspection Eye Exam: Normal inspection: bilateral Ears, Nose, Throat: Present: normal except -, abnormal TM (R), abnormal TM (L), other - Right TM is whitish indurated painful. Absent: nasal congestion, pharyngeal erythema, pharyngeal swelling Neck: Present: normal inspection, nontender, full range of motion Respiratory: Present: no respiratory distress Cardiovascular/Chest: Present: regular rate, rhythm Peripheral Pulses: N=norm/S=strong/W=weak/B=bound/A=absent: Carotid (R): Normal, Carotid (L): Normal Gastrointestinal/Abdominal: Present: normal bowel sounds, other - Patient has a chronic open wound in her abdomen that is can be seen to be oozing red blood Back Exam: Present: normal inspection Extremity Exam: Present: normal inspection Neurological Exam: Present: alert, oriented, normal mood/affect Skin Exam: Present: normal color, jaundice Progress - Results and Orders Patient's Lab Results:: I have reviewed the patient's lab results. - Vital Signs Patient's Vital Signs:: I have reviewed the patient's vital signs. Vital Signs: Vital Signs 08/19/18 05:17 Temperature 37.2 C Pulse Rate 106 H Respiratory Rate 20 Blood Pressure 119/71 O2 Sat by Pulse Oximetry 95 - EKG EKG #1 EKG read: Interp. by me EKG Comments: EKG sinus rhythm first-degree AV block occasional APCs heart rate of 94 low QRS voltage possible anterior no acute changes from prior EKG of June 2016 - Progress/Reassessment Chief Complaint: Dizziness Progress:: Unchanged Plan - Plan Plan: She will be admitted to observation for ration of declining hemoglobin and bleeding from the abdominal wall Dr. Ayala is except Departure Clinical Impression: Anemia due to blood loss, chronic, Fistula, UTI (urinary tract infection) - Departure Disposition: Short Term Hospital Inpatient Condition: Good Referrals: Pj Padilla MD [Primary Care Provider] -
[2018-08-19 06:13] LABS: Hemoglobin 7.5 gm/dL (12.5-16.0)
[2018-08-19 06:17] LABS: Albumin * 2.9 gm/dl (3.4-5.0); Anion Gap 11.3 mmol/L (6.8-13.8); Bilirubin, Total 0.5 mg/dL (0.0-1.1); Calcium * 8.4 mg/dL (7.9-10.9); Carbon Dioxide 30.3 mmol/L (24-32.6); Potassium 3.6 mmol/L (3.4-4.6); Total Protein 7.2 gm/dL (6.2-8.2)
[2018-08-19 06:29] LABS: Urine Bilirubin Negative (NEGATIVE); Urine Blood 25 /ul (NEGATIVE); Urine Ketone Negative (NEGATIVE); Urine Protein 100 mg/dL (NEGATIVE); Urine Urobilinogen Normal (NORMAL)
[2018-08-19 06:43] LABS: Urine Nitrite Positive (NEGATIVE)
[2018-08-19 06:44] LABS: Urine Amorphous Sediment Moderate - 2+ (NONE-FEW); Urine Appearance Cloudy (CLEAR); Urine Bacteria 4+; Urine Color Yellow; Urine Mucus Moderate - 2+; Urine RBC 0-5 /hpf (0-5)
[2018-08-19 06:55] LABS: Prothrombin Time (Patient) 11.7 Seconds (9.1-10.7)
[2018-08-19 06:56] LABS: INR 1.19 INR (0.92-1.08); Partial Thrombolplastin Time 30.7 Seconds (24-32)
[2018-08-19 07:18] LABS: Amylase * 34 U/L (25-115); Lipase 75 U/L (73-393); Troponin I Less than 0.017 ng/mL (0.00-0.10)
[2018-08-19] MEDS ORDERED: SULFAMETHOXAZOLE/TRIMETHOPRIM 1 TAB TABLET PO ONE (07:49)
[2018-08-19 12:02] LABS: Hematocrit 27.6 % (37.0-47.0); Mean Cell Volume 69.2 fl (78-100); Mean Corpuscular Hgb Conc 27.5 g/dl (32-36); Mean Platelet Volume 9.3 fl (8-12.5); Neutrophil # 5.9 K/mm3 (1.3-6.0); Neutrophil % 66.8 % (42-75.0); Platelet Count 270 K/mm3 (150-450); Red Blood Count 3.99 M/mm3 (4.2-5.4); Red Cell Distribution Width 19.3 % (11.5-14.0); White Blood Count 8.8 K/mm3 (4.0-10.5)
[2018-08-19 12:06] LABS: Hemoglobin 7.6 gm/dL (12.5-16.0)
--- NOTE | 2018-08-19 16:17 | HP ---
Chief Complaint - Chief Complaint Date of Service: 08/19/18 Time of Service: 08:45 Chief Complaint: Whooshing in ear History of Present Illness: Bridgette is a 63 yo female who presented to the [facility] ER with reports of whooshing/buzzing sound from her ears. On examination there was no significant ear abnormality but upon further investigation her hemoglobin was found to be 7.5. 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 She reports this has been evaluated in the past and it was recommend that she leave it alone. She reports it bleeds daily and has bled a little more as of late. She has not had any noticeable blood elsewhere. She reports the fistula developed after an intra-abdominal abscess and has never closed. She reports complicated history of neurogenic bladder with need for urostomy and numerous hernia surgeries. She has no significant abdominal pain. Medical History (Updated 08/22/18 @ 11:42 by Alise Brewer LPN) Ventral hernia (Chronic) Onset Date: Unknown Hiatal hernia (Chronic) Onset Date: Unknown Carpal tunnel syndrome (Chronic) Onset Date: Unknown Irregular bowel habits (Chronic) Onset Date: Unknown Vertigo (Chronic) Onset Date: Unknown TMJ syndrome (Chronic) Onset Date: Unknown Neuropathy (Chronic) Onset Date: Unknown both hands and arms Moderate concentric left ventricular hypertrophy (Chronic) Onset Date: 06/24/14 Fibrocystic breast disease (Chronic) Onset Date: Unknown Graves disease (Chronic) Onset Date: Unknown GERD (gastroesophageal reflux disease) (Chronic) Onset Date: Unknown Fibromyalgia (Chronic) Onset Date: Unknown Depression (Chronic) Onset Date: Unknown Chronic pain syndrome (Chronic) Onset Date: 08/01/11 Asthma, intermittent (Chronic) Onset Date: 09/23/11 Anemia, iron deficiency Onset Date: Unknown Hx of hypokalemia Hx of sepsis Hx: UTI (urinary tract infection) hx of altered mental status 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 Spastic bladder Onset Date: Unknown 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 Syncope Onset Date: 05/18/06 Tuberculosis Onset Date: ~1992 Urethral stenosis Onset Date: Unknown urosepsis Onset Date: ~06/2005 Surgical History: Surgical History (Updated 08/22/18 @ 11:56 by Alise Brewer LPN) Surgical history unknown History of appendectomy Onset Date: ~1979 History of arthroscopic knee surgery Onset Date: ~1989 right knee History of breast biopsy Onset Date: ~1973 right History of breast lump/mass excision Onset Date: ~1989 History of carpal tunnel release Onset Date: ~1982 History of section Onset Date: ~1984 History of colonoscopy Onset Date: ~1997 History of hemorrhoidectomy Onset Date: ~1995 History of inguinal hernia repair Onset Date: ~1989 History of oophorectomy Onset Date: ~1978 History of subtotal thyroidectomy Onset Date: ~2006 History of total vaginal hysterectomy Onset Date: ~1984 Normal endoscopy Onset Date: ~1997 Normal sigmoidoscopy Onset Date: ~1997 Umbilical hernia Onset Date: ~1990 cryotherapy of tongue lesion Onset Date: ~2005 Family History: Family History (Updated 08/22/18 @ 11:44 by Alise Brewer LPN) Father , age 64 Parkinson disease Pneumonia Mother , age 88 Heart disease CHF (congestive heart failure) Hypertension Malaria Graves disease Other Family history unknown Social History: Patient Lives/Resources Home Utilized Preferred Language Trinidadian Smoking Status Never smoker Have you smoked in the past 12 No months Abuse History No History of abuse Psych History Hx of Anxiety,Hx of Depression Alcohol Use none Drug Use none No Social History Section defined Review Of Systems (GEN) - Review of Systems Generalized/Overall Review: Present: Weakness. Absent: Chills, Fever EENTM: Present: No Symptoms Reported Respiratory: Absent: Cough, Shortness of Breath Cardiac: Absent: Chest Pain, Edema, Palpitations, Syncope Abdominal: Present: Other - Blood from abdominal fistula. Absent: Nausea, Vomiting, Hematemesis, Abdominal Pain, Constipation, Diarrhea Genitourinary: Present: Other - Urostomy with bag Musculoskeletal: Present: No Symptoms Reported Neurological: Present: No Symptoms Reported Skin: Present: Other - Chronic fistula, no change in appearance Immunizations: IMMUNIZATION HX Immunizations Up to Date Yes History of Influenza Vaccine No Hx Pneumococcal Vaccination Yes Allergies/Adverse Reactions: Allergies Allergy/AdvReac Type Severity Reaction Status Date / Time cefixime [From Suprax] Allergy Unknown Verified 08/19/18 06:00 cefprozil [From Cefzil] Allergy Unknown Verified 08/19/18 06:00 cimetidine [From Tagamet] Allergy Unknown Verified 08/19/18 06:00 cimetidine HCl [From Tagamet] Allergy Unknown Verified 08/19/18 06:00 clarithromycin [From Biaxin] Allergy Unknown Verified 08/19/18 06:00 clindamycin HCl Allergy Unknown Verified 08/19/18 06:00 [From Cleocin] clindamycin palmitate HCl Allergy Unknown Verified 08/19/18 06:00 [From Cleocin] clindamycin phosphate Allergy Unknown Verified 08/19/18 06:00 [From Cleocin] dicyclomine HCl [From Bentyl] Allergy Unknown Verified 08/19/18 06:00 diphenhydramine HCl Allergy Unknown Verified 08/19/18 06:00 [From Benadryl] hydroxyzine HCl [From Atarax] Allergy Unknown Verified 08/19/18 06:00 ibuprofen [From Motrin] Allergy Unknown Verified 08/19/18 06:00 ketoconazole [From Nizoral] Allergy Unknown Verified 08/19/18 06:00 ketorolac tromethamine Allergy Unknown Verified 08/19/18 06:00 [From Toradol] loperamide HCl Allergy Unknown Verified 08/19/18 06:00 [From Imodium Advanced] metoclopramide HCl Allergy Unknown Verified 08/19/18 06:00 [From Reglan] nitrofurantoin Allergy Unknown Verified 08/19/18 06:00 [From Macrobid] nitrofurantoin Allergy Unknown Verified 08/19/18 06:00 macrocrystalline [From Macrobid] nortriptyline [Nortriptyline] Allergy Unknown Verified 08/19/18 06:00 prochlorperazine edisylate Allergy Unknown Verified 08/19/18 06:00 [From Compazine] prochlorperazine maleate Allergy Unknown Verified 08/19/18 06:00 [From Compazine] simethicone Allergy Unknown Verified 08/19/18 06:00 [From Imodium Advanced] atropine Allergy Verified 08/19/18 06:00 ciprofloxacin [From Cipro] Allergy Verified 08/19/18 06:00 ciprofloxacin HCl Allergy Verified 08/19/18 06:00 [From Cipro] clindamycin Allergy Verified 08/19/18 06:00 codeine [Codeine] Allergy Verified 08/19/18 06:00 ethambutol [Ethambutol] Allergy Verified 08/19/18 06:00 imipramine [Imipramine] Allergy Verified 08/19/18 06:00 isoniazid Allergy Verified 08/19/18 06:00 penicillin V [Penicillin V] Allergy Verified 08/19/18 06:00 pyrazinamide Allergy Verified 08/19/18 06:00 rifampin Allergy Verified 08/19/18 06:00 tetracycline [Tetracycline] Allergy Verified 08/19/18 06:00 Home Medications: HOME MEDICATIONS Ferrous Gluconate [Iron] 236 mg PO BID #60 tab 08/19/18 [Last Taken Unknown] LORazepam [Ativan] 1 mg PO QID 08/19/18 [Last Taken Unknown] Lidocaine HCl [Lidocaine HCl Viscous 2%] 1 appl TOPICAL QID PRN 08/19/18 [Last Taken Unknown] Lorazepam 2 mg PO QID PRN 08/19/18 [Last Taken Unknown] Morphine Sulfate [Morphine Sulfate Conc. Oral Solution] 80 mg PO Q4H PRN 08/19/18 [Last Taken Unknown] Promethazine HCl [Phenergan (Promethazine)] 25 mg PO Q6H PRN 08/19/18 [Last Taken Unknown] Promethazine HCl [Phenergan (Promethazine)] 50 mg PO Q6H PRN 08/19/18 [Last Taken Unknown] Propranolol HCl [Inderal] 10 mg PO QID 08/19/18 [Last Taken Unknown] Exam - Exam Vital Signs: Vital Signs - Last Taken Temp 37.1 C 08/19/18 14:39 Pulse 88 08/19/18 14:39 Resp 16 08/19/18 14:39 BP 116/65 08/19/18 14:39 Pulse Ox 94 08/19/18 14:39 Constitutional: Present: Alert, Oriented x3, Cooperative ENT Exam: Present: hearing grossly normal Respiratory: Present: lungs clear, normal breath sounds Cardiovascular/Chest: Present: regular rate, rhythm, no murmur Abdomen: Present: Normal bowel sounds, soft, nontender, other - chronic fistula opening bandaged, blood on bandage Neurologic: Present: alert, oriented x 3 Appearance: Present: appropriate appearance Eye contact: Present: cooperative, good eye contact, normal speech Diagnostic Studies: Abnormal Lab Results 08/19/18 08/19/18 08/19/18 Range/Units 06:00 06:00 06:30 WBC 11.9 H (4.0-10.5) K/mm3 RBC 3.93 L (4.2-5.4) M/mm3 Hgb 7.5 L* (12.5-16.0) gm/dL Hct 27.2 L (37.0-47.0) % MCV 69.2 L (78-100) fl MCH 19.1 L (27-31) pg MCHC 27.6 L (32-36) g/dl RDW 19.2 H (11.5-14.0) % Immature Gran % (Auto) 0.50 H (0.001-0.429) % Immature Gran # (Auto) 0.06 H (0.000-0.0310) K/mm3 Lymphocytes % 18.7 L (20-51) % Monocytes % 12.3 H (0.0-9) % Neutrophils # 8.0 H (1.3-6.0) K/mm3 Monocytes # 1.5 H (0.0-1.0) k/mm3 PT (9.1-10.7) Seconds INR (Anticoag Therapy) (0.92-1.08) INR ALT 12 L (19-67) U/L Albumin 2.9 L (3.4-5.0) gm/dl Urine Protein 100 H (NEGATIVE) mg/dL Urine Blood 25 H (NEGATIVE) /ul Urine Nitrate Positive H (NEGATIVE) Prot Sulfosalicylic Acd 4+ H (0) mg/dL Ur Leukocyte Esterase 75 H (NEGATIVE) /ul Urine WBC 5-10 H (0-5) /hpf Ur Epithelial Cells 10-25 H (0-5) /hpf Amorphous Sediment Moderate - 2+ H (NONE-FEW) Urine Bacteria 4+ H (NONE) Urine Mucus Moderate - 2+ H (NONE) 08/19/18 08/19/18 Range/Units 06:45 11:53 WBC (4.0-10.5) K/mm3 RBC 3.99 L (4.2-5.4) M/mm3 Hgb 7.6 L* (12.5-16.0) gm/dL Hct 27.6 L (37.0-47.0) % MCV 69.2 L (78-100) fl MCH 19.0 L (27-31) pg MCHC 27.5 L (32-36) g/dl RDW 19.3 H (11.5-14.0) % Immature Gran % (Auto) 0.60 H (0.001-0.429) % Immature Gran # (Auto) 0.05 H (0.000-0.0310) K/mm3 Lymphocytes % (20-51) % Monocytes % 10.7 H (0.0-9) % Neutrophils # (1.3-6.0) K/mm3 Monocytes # (0.0-1.0) k/mm3 PT 11.7 H (9.1-10.7) Seconds INR (Anticoag Therapy) 1.19 H (0.92-1.08) INR ALT (19-67) U/L Albumin (3.4-5.0) gm/dl Urine Protein (NEGATIVE) mg/dL Urine Blood (NEGATIVE) /ul Urine Nitrate (NEGATIVE) Prot Sulfosalicylic Acd (0) mg/dL Ur Leukocyte Esterase (NEGATIVE) /ul Urine WBC (0-5) /hpf Ur Epithelial Cells (0-5) /hpf Amorphous Sediment (NONE-FEW) Urine Bacteria (NONE) Urine Mucus (NONE) Laboratory Results WBC 8.8 K/mm3 (4.0-10.5) D 08/19/18 11:53 RBC 3.99 M/mm3 (4.2-5.4) L 08/19/18 11:53 Hgb 7.6 gm/dL (12.5-16.0) L* 08/19/18 11:53 Hct 27.6 % (37.0-47.0) L 08/19/18 11:53 MCV 69.2 fl (78-100) L 08/19/18 11:53 MCH 19.0 pg (27-31) L 08/19/18 11:53 MCHC 27.5 g/dl (32-36) L 08/19/18 11:53 RDW 19.3 % (11.5-14.0) H 08/19/18 11:53 Plt Count 270 K/mm3 (150-450) 08/19/18 11:53 MPV 9.3 fl (8-12.5) 08/19/18 11:53 Immature Gran % (Auto) 0.60 % (0.001-0.429) H 08/19/18 11:53 Immature Gran # (Auto) 0.05 K/mm3 (0.000-0.0310) H 08/19/18 11:53 66.8 % (42-75.0) 08/19/18 11:53 20.7 % (20-51) 08/19/18 11:53 10.7 % (0.0-9) H 08/19/18 11:53 0.6 % (0.0-3.0) 08/19/18 11:53 0.6 % (0.0-1.0) 08/19/18 11:53 Nucleated RBC % 0.0 k/mm3 (0-1) 08/19/18 11:53 5.9 K/mm3 (1.3-6.0) 08/19/18 11:53 1.82 k/mm3 (1.5-3.5) 08/19/18 11:53 0.9 k/mm3 (0.0-1.0) 08/19/18 11:53 0.1 k/mm3 (0.0-0.7) 08/19/18 11:53 Absolute Basophils 0.1 k/mm3 (0.0-0.1) 08/19/18 11:53 PT 11.7 Seconds (9.1-10.7) H 08/19/18 06:45 INR (Anticoag Therapy) 1.19 INR (0.92-1.08) H 08/19/18 06:45 PTT ([place]) 30.7 Seconds (24-32) 08/19/18 06:45 Sodium 138 mmol/L (132-142) 08/19/18 06:00 138 mmol/L (130-142) 08/19/18 06:00 Potassium 3.6 mmol/L (3.4-4.6) 08/19/18 06:00 Chloride 100 mmol/L (97-106) 08/19/18 06:00 Carbon Dioxide 30.3 mmol/L (24-32.6) 08/19/18 06:00 11.3 mmol/L (6.8-13.8) 08/19/18 06:00 BUN 10 mg/dL (3-23) 08/19/18 06:00 0.91 mg/dL (0.4-1.4) 08/19/18 06:00 Est GFR (Non-Af Amer) 66 mL/min (60-130) 08/19/18 06:00 11.0 (9.0-21.6) 08/19/18 06:00 107 mg/dL (70-110) 08/19/18 06:00 Calcium 8.4 mg/dL (7.9-10.9) 08/19/18 06:00 Calcium Adj for Albumin 9.0 mg/dL (8.4-10.2) 08/19/18 06:00 0.5 mg/dL (0.0-1.1) 08/19/18 06:00 AST 16 U/L (0-48) 08/19/18 06:00 ALT 12 U/L (19-67) L 08/19/18 06:00 111 U/L (50-170) 08/19/18 06:00 Less than 0.017 ng/mL (0.00-0.10) 08/19/18 06:45 7.2 gm/dL (6.2-8.2) 08/19/18 06:00 2.9 gm/dl (3.4-5.0) L 08/19/18 06:00 Amylase 34 U/L (25-115) 08/19/18 06:45 75 U/L (73-393) 08/19/18 06:45 Yellow 08/19/18 06:30 Cloudy (CLEAR) 08/19/18 06:30 7.0 pH (5.0-7.0) 08/19/18 06:30 Ur Specific [place] 1.020 SP.GR. (1.005-1.010) 08/19/18 06:30 100 mg/dL (NEGATIVE) H 08/19/18 06:30 Negative mg/dL (NEGATIVE) 08/19/18 06:30 Negative mg/dL (NEGATIVE) 08/19/18 06:30 25 /ul (NEGATIVE) H 08/19/18 06:30 Positive (NEGATIVE) H 08/19/18 06:30 Negative mg/dl (NEGATIVE) 08/19/18 06:30 Prot Sulfosalicylic Acd 4+ mg/dL (0) H 08/19/18 06:30 Normal EU/dl (NORMAL) 08/19/18 06:30 Ur Leukocyte Esterase 75 /ul (NEGATIVE) H 08/19/18 06:30 0-5 /hpf (0-5) 08/19/18 06:30 5-10 /hpf (0-5) H 08/19/18 06:30 Ur Epithelial Cells 10-25 /hpf (0-5) H 08/19/18 06:30 Amorphous Sediment Moderate - 2+ (NONE-FEW) H 08/19/18 06:30 4+ (NONE) H 08/19/18 06:30 Moderate - 2+ (NONE) H 08/19/18 06:30 Culture to follow 08/19/18 06:30 Blood Type O Positive 08/19/18 06:30 Antibody Screen Negative 08/19/18 06:30 Assessment/Plan - Narrative Narrative: Bridgette is a 63 yo female with a chronic abdominal fistula with chronic minimal bleeding. She has chronic anemia secondary to this blood loss and blood counts have dropped to 7.5. Will admit to observation and repeat hemoglobin to see that this is not rapidly dropping as it was 9 on prior check and patient reports an increase in bleeding lately. She reports she has had multiple evaluations and has been told that she should not have surgery on the fistula by multiple surgeons, including [facility]. - Assessment/Plan (1) Anemia due to blood loss, chronic Problem: Acute (2) Fistula Problem: Chronic
--- NOTE | 2018-08-19 16:52 | DS ---
(1) Anemia due to blood loss, chronic Problem: Acute Description of Stay: Bridgette is a 63 yo female that presented to the ER for whooshing in her ears, but while there was found to have a hemoglobin of 7.5. Bridgette reported the only location that she notices bleeding is from a chronic abdominal fistula. She was monitored and hemoglobin was rechecked several hours later and was improved to 7.6. As her bleeding is not actively bleeding of significance it is ok for her to be discharged and to attempt to improve her hemoglobin by using iron supplementation. Blood transfusions are not warranted unless her hemoglobin were to become lower than 7.0. She reports previously having GI intolerance to ferrous sulfate. Will treat with ferrous gluconate which typically has less GI side effects. She will follow up with Dr. Lanier who she has seen in the past. She has been recently seeing Devorah Best, but because of her complicated medical history Devorah has requested that she follow up with Dr. Lanier. Procedures Performed: none Results and Findings: Lab Pending Results 08/19/18 06:00: WBC 11.9 H, RBC 3.93 L, Hgb 7.5 L*, Hct 27.2 L, MCV 69.2 L, MCH 19.1 L, MCHC 27.6 L, RDW 19.2 H, Plt Count 282, MPV 9.0, Immature Gran % (Auto) 0.50 H, Immature Gran # (Auto) 0.06 H, Neutrophils % 67.4, Lymphocytes % 18.7 L, Monocytes % 12.3 H, Eosinophils % 0.7, Basophils % 0.4, Nucleated RBC % 0.0, Neutrophils # 8.0 H, Lymphocytes # 2.22, Monocytes # 1.5 H, Eosinophils # 0.1, Absolute Basophils 0.1 08/19/18 06:00: Sodium 138, Plasma Sodium 138, Potassium 3.6, Chloride 100, Carbon Dioxide 30.3, Anion Gap 11.3, BUN 10, Creatinine 0.91, Est GFR (Non-Af Amer) 66, BUN/Creatinine Ratio 11.0, Random Glucose 107, Calcium 8.4, Calcium Adj for Albumin 9.0, Total Bilirubin 0.5, AST 16, ALT 12 L, Alkaline Phosphatase 111, Total Protein 7.2, Albumin 2.9 L 08/19/18 06:30: Urine Color Yellow, Urine Appearance Cloudy, Urine pH 7.0, Ur Specific [place] 1.020, Urine Protein 100 H, Urine Glucose (UA) Negative, Urine Ketones Negative, Urine Blood 25 H, Urine Nitrate Positive H, Urine Bilirubin Negative, Prot Sulfosalicylic Acd 4+ H, Urine Urobilinogen Normal, Ur Leukocyte Esterase 75 H, Urine RBC 0-5, Urine WBC 5-10 H, Ur Epithelial Cells 10-25 H, Amorphous Sediment Moderate - 2+ H, Urine Bacteria 4+ H, Urine Mucus Moderate - 2+ H, Urine Culture Comments Culture to follow 08/19/18 06:30: Blood Type O Positive, Antibody Screen Negative 08/19/18 06:45: PT 11.7 H, INR (Anticoag Therapy) 1.19 H, PTT ([place]) 30.7 08/19/18 06:45: Troponin I Less than 0.017, Amylase 34, Lipase 75 08/19/18 11:53: WBC 8.8 D, RBC 3.99 L, Hgb 7.6 L*, Hct 27.6 L, MCV 69.2 L, MCH 19.0 L, MCHC 27.5 L, RDW 19.3 H, Plt Count 270, MPV 9.3, Immature Gran % (Auto) 0.60 H, Immature Gran # (Auto) 0.05 H, Neutrophils % 66.8, Lymphocytes % 20.7, Monocytes % 10.7 H, Eosinophils % 0.6, Basophils % 0.6, Nucleated RBC % 0.0, Neutrophils # 5.9, Lymphocytes # 1.82, Monocytes # 0.9, Eosinophils # 0.1, Absolute Basophils 0.1 Discharge Location: Home Disposition: Home self-care Condition: Good Discharge Activity: Activity as tolerated Discharge Diet: General/regular food Referrals: Pj Padilla MD [Primary Care Provider] - One Week Problem Oriented Discharge Instructions to Patient/Family: Anemia, Nonspecific Prescriptions (Any new or edited meds): Ferrous Gluconate [Iron] 236 mg PO BID #60 tab Complete Home Medications List: Complete Home Medication List: Ferrous Gluconate [Iron] 236 mg PO BID #60 tab 08/19/18 LORazepam [Ativan] 1 mg PO QID 08/19/18 Lidocaine HCl [Lidocaine HCl Viscous 2%] 1 appl TOPICAL QID PRN 08/19/18 Lorazepam 2 mg PO QID PRN 08/19/18 Morphine Sulfate [Morphine Sulfate Conc. Oral Solution] 80 mg PO Q4H PRN 08/19/18 Promethazine HCl [Phenergan (Promethazine)] 25 mg PO Q6H PRN 08/19/18 Promethazine HCl [Phenergan (Promethazine)] 50 mg PO Q6H PRN 08/19/18 Propranolol HCl [Inderal] 10 mg PO QID 08/19/18
[2018-08-19 17:14] VITALS: BP 149/88
== END 2018-08-19 17:50 | disposition home or self-care (01) ==
LOC: MS 05:11 → ER 05:11 → MS 08:16
PROVIDERS: ADMIT Family Medicine; ATTEND Family Medicine
DX: D50.0 Iron deficiency anemia secondary to blood loss (chronic)
CPT/HCPCS: 36415; 80053; 81001; 82150; 83690; 84484; 85025; 85610; 85730; 86850; 87077; 87086; 87186; 93005; 99285; G0378